=== PATIENT | female | born 1975 | race Caucasian/White ===

== ENCOUNTER → 2018-09-23 | Outpatient (CLI) | payer BC ==
--- NOTE | 2018-09-23 16:25 | Diagnostic Imaging Report ---
INDICATION: Pelvic pain. FINDINGS: Uterus measures 10 x 6.2 x 5.4 cm. There are two heterogeneous solid masses within the myometrium, largest measuring 4.5 cm to the right of midline. Endometrial stripe measures 9 mm and appears uniform. The right ovary measures 2.8 x 2 x 1.5 cm. The left ovary measures 3.6 x 1.8 x 1.4 cm. There is a hyperechoic area within the left ovary, which is well circumscribed measuring 1.5 cm in diameter. There is normal blood flow to both ovaries. IMPRESSION: 1. Myometrial masses likely representing uterine fibroids, largest measuring 4.5 cm. 2. A well-circumscribed hyperechoic mass in the left ovary measuring 1.5 cm. This could represent hemorrhagic cyst. Would recommend followup for stability. Dictated by: Dictated on workstation # [id number]
--- NOTE | 2018-09-23 16:28 | Diagnostic Imaging Report ---
CLINICAL INDICATION: Patient with thyromegaly. COMPARISONS: None. FINDINGS: THYROID NODULES: There is a small cystic nodule with eccentric small hyperechoic area located in the mid right thyroid gland region which measures 7 mm x 8 mm x 4 mm. There is a solid and cystic nodule involving the mid to inferior portion of the left thyroid gland which measures 8 mm x 5 mm x 8 mm. THYROID GLAND: Besides the thyroid nodules, the thyroid gland is heterogeneous with other small hypoechoic areas seen bilaterally which are all subcentimeter. There is no significant abnormal central Doppler flow. The right lobe measures 4.3 cm x 2.0 cm x 2.1 cm and the left lobe measures 4.2 cm x 1.4 cm x 2.3 cm in their three dimensions. ISTHMUS: The isthmus is unremarkable and measures 4 mm in thickness. IMPRESSION: 1: There are benign appearing right and left subcentimeter thyroid gland nodules, as described above. 2: There is nonspecific heterogeneity of the bilateral thyroid gland lobes with multiple small hypoechoic areas seen bilaterally. These may represent small nodules as well. Dictated by: Dictated on workstation # [id number]
--- NOTE | 2018-09-23 16:52 | Diagnostic Imaging Report ---
INDICATION: Routine screening. COMPARISON: Comparison is made with prior mammogram from 09/04/2017 and 07/25/2016. TECHNIQUE: 2D and 3D bilateral screening mammography was performed with computer-aided detection (CAD) system. FINDINGS: Scattered fibroglandular densities are identified bilaterally. The parenchymal pattern is stable. No mass or malignant appearing microcalcifications are seen. The axillae are unremarkable. IMPRESSION: No mammographic features suspicious for malignancy are identified. ACR BI-RADS Category 1: Negative. Result letter will be mailed to the patient. Note: At least 10% of breast cancer is not imaged by mammography. Dictated by: Dictated on workstation # [id number]
== END ==
LOC: RAD 14:27
PROVIDERS: ATTEND Nurse Practitioner Family
DX: Z12.31 Encounter for screening mammogram for malignant neoplasm of breast (principal); N83.8 Other noninflammatory disorders of ovary, fallopian tube and broad ligament; N85.8 Other specified noninflammatory disorders of uterus; E04.2 Nontoxic multinodular goiter
CPT/HCPCS: 76536; 76830; 76856; 77067

== ENCOUNTER → 2020-08-28 | Outpatient (CLI) | payer BC ==
--- NOTE | 2020-08-28 18:00 | Diagnostic Imaging Report ---
INDICATION: Routine screening. COMPARISON is made with prior mammogram of 09/23/2018. 2-D and 3-D bilateral screening mammography was performed with CAD. Both breasts are heterogeneously dense, limiting the sensitivity of mammography. Intraparenchymal lymph node upper outer right breast appears stable. Clustered microcalcifications in the upper-outer right breast appear stable. No new mass or malignant appearing microcalcifications are detected. Axillae are unremarkable. IMPRESSION: BI-RADS Category 2. No mammographic features suspicious for malignancy are identified. Dictated by: Dictated on workstation # [id number]
== END ==
LOC: RAD 14:52
PROVIDERS: ATTEND Obstetrics & Gynecology
DX: Z12.31 Encounter for screening mammogram for malignant neoplasm of breast (principal)
CPT/HCPCS: 77063; 77067

== ENCOUNTER → 2021-08-29 | Outpatient (CLI) | payer BC, OTHER ==
--- NOTE | 2021-08-29 22:16 | Diagnostic Imaging Report ---
INDICATION: Routine screening. COMPARISON: Prior mammograms from 08/28/2020 and 09/23/2018. EXAMINATION: 2D and 3D bilateral screening mammography was performed with CAD. The current study was also evaluated with a Computer Aided Detection (CAD) system. FINDINGS: Both breasts are heterogeneously dense, limiting the sensitivity of mammography. Calcifications in the outer right breast appear stable. No mass or malignant-appearing microcalcifications are seen. Axillae are unremarkable. IMPRESSION: No mammographic features suspicious for malignancy are identified. ACR BI-RADS Category 2: Benign findings. Result letter will be mailed to the patient. Note: At least 10% of breast cancer is not imaged by mammography. Dictated by: Dictated on workstation # [id number]
== END ==
LOC: RAD 11:24
PROVIDERS: ATTEND Obstetrics & Gynecology
DX: Z12.31 Encounter for screening mammogram for malignant neoplasm of breast (principal)
CPT/HCPCS: 77063; 77067

== ENCOUNTER 2022-05-29 05:39 | Outpatient (CLI) | payer OTHER ==
[~2022-05-29] VITALS: Ht 162.6 cm; Wt 89.5 kg
--- NOTE | 2022-06-04 16:20 | Progress Note-Pre Operative ---
Pre-Operative Progress Note H&P Reviewed The H&P was reviewed, patient examined and no changes noted. Date Seen by Provider: Jun 05, 2022 Date H&P Reviewed: Jun 05, 2022 Pre-Operative Diagnosis: CPP / endometriosis STAR CAN MD Jun 04, 2022 16:20
--- NOTE | 2022-06-04 16:21 | Progress Note-Post Operative ---
Post-Operative Progess Note Surgeon (s)/Semiconductor Manufacturing Technician (s) Surgeon STAR CAN MD Pre-Operative Diagnosis CPP / endometriosis Post-Operative Diagnosis sme Procedure & Operative Findings Date of Procedure 06/04/22 Procedure Performed/Findings TLH with BSO Anesthesia Type general Specimens/Packing Specimens Removed Uterus tubes and ovaries STAR CAN MD Jun 04, 2022 16:21
== END 2022-06-02 13:15 | disposition home or self-care (01) ==
LOC: PREOP 05:39
PROVIDERS: ATTEND Obstetrics & Gynecology
DX: Z01.818 Encounter for other preprocedural examination (principal)

== ENCOUNTER 2022-06-05 11:34 | Day surgery (SDC) | payer OTHER ==
[2022-06-05] VITALS (9 sets, daily range): BP systolic 131–157; BP diastolic 71–99
[~2022-06-05] VITALS: Ht 162.6 cm; Wt 89.5 kg
[2022-06-05] MEDS ORDERED: LACTATED RINGERS 1,000 ML IV PRN (11:45)
[2022-06-05] MEDS ORDERED: KETOROLAC 30 MG/ML VIAL IVP SCH (11:45)
[2022-06-05] MEDS ORDERED: oxyCODONE/APAP 5/325MG (PERCOCET 5) TABLET PO PRN (11:45)
[2022-06-05] MEDS ORDERED: fentaNYL INJ 100 MCG/2 ML AMP IVP PRN (11:45)
[2022-06-05] MEDS ORDERED: ONDANSETRON 4 MG/2 ML (SDV) Z0FRAN IVP PRN ×3 (11:45→16:15)
[2022-06-05] MEDS ORDERED: ceFAZolin INJECTION 1,000 MG VIAL IV ONE (12:00)
[2022-06-05] MEDS ORDERED: ceFAZolin INJECTION 1,000 MG ONE (12:07)
[2022-06-05 12:09] LABS: BASOPHILS # (AUTO) 0.1 10^3/uL (0.0-0.1); BASOPHILS % (AUTO) 1 % (0-10); EOSINOPHILS # (AUTO) 0.1 10^3/uL (0.0-0.3); EOSINOPHILS % (AUTO) 1 % (0-10); HEMATOCRIT 42 % (35-52); HEMOGLOBIN 13.6 g/dL (11.5-16.0); LYMPHOCYTES # (AUTO) 1.7 10^3/uL (1.0-4.0); LYMPHOCYTES % (AUTO) 23 % (12-44); MEAN CORPUSCULAR HEMOGLOBIN 30 pg (25-34); MEAN CORPUSCULAR HGB CONC 32 g/dL (32-36); MEAN CORPUSCULAR VOLUME 94 fL (80-99); MEAN PLATELET VOLUME 10.1 fL (9.0-12.2); MONOCYTES # (AUTO) 0.4 10^3/uL (0.0-1.0); MONOCYTES % (AUTO) 6 % (0-12); NEUTROPHILS # (AUTO) 5.4 10^3/uL (1.8-7.8); NEUTROPHILS % (AUTO) 70 % (42-75); PLATELET COUNT 257 10^3/uL (130-400); WHITE BLOOD COUNT 7.8 10^3/uL (4.3-11.0)
[2022-06-05] MEDS ORDERED: LIDOCAINE/EPI 2% 1:100,00 (XYLOCAINE) 20 ML VIAL ONE (12:10)
[2022-06-05] MEDS ORDERED: ROCURONIUM 50 MG/5 ML (ZEMURON) VIAL IV ONE (12:20)
[2022-06-05] MEDS ORDERED: KETOROLAC 30 MG/ML VIAL ONE (12:20)
[2022-06-05] MEDS ORDERED: ONDANSETRON 4 MG/2 ML (SDV) Z0FRAN ONE (12:20)
[2022-06-05] MEDS ORDERED: MIDAZOLAM 2 MG/2 ML (VERSED) VIAL ONE (12:20)
[2022-06-05] MEDS ORDERED: LIDOCAINE PF 2% 5 ML (XYLOCAINE) VIAL ONE (12:20)
[2022-06-05] MEDS ORDERED: fentaNYL INJ 100 MCG/2 ML AMP ONE ×2 (12:20→17:47)
[2022-06-05] MEDS ORDERED: proPOfol 200 MG/20 ML (DIPRIVAN) VIAL IV ONE (12:20)
[2022-06-05] MEDS ORDERED: ESTROGENS CONJ INJECTION 25 MG in WATER (STERILE) FOR INJECTION 5 ML IV ONE (13:30)
--- NOTE | 2022-06-05 13:30 | Discharge Inst-Surgical ---
Discharge Inst-Surgical Depart Medication/Instructions New, Converted or Re-Newed RX: Transmitted to Pharmacy Consults/Follow Up Patient Instructions: as Directed Orders & Referrals Follow Up Appt: Return to clinic on Thursday, June 09, 2022 for staple removal Call to make follow up appt. for patient in 4 weeks. Activity: Rest for 24 hours, than as tolerated. Wound Care: May remove Band-Aid tomorrow. Replace as desired. Keep incisions clean and dry. Wash daily with soap and water. Prescriptions for Percocet Motrin Colace and estradiol have been sent to patient's pharmacy from my office Diet: As tolerated-Clear Liquids only if nauseated. Tomorrow, may shower or tub bathe as desired. No driving for 24 hours, no alcoholic beverages for 24 hours, and nothing per vagina (no tampons, douching, or intercourse) for 8 weeks. Patient to return to the clinic as soon as possible for: Temperature greater than 101F, Severe Pain, Foul discharge from incision or vagina, Excessive Bleeding (more than a period). Activity Activity as Tolerated: No Diet Discharge Diet: No Restrictions STAR CAN MD Jun 05, 2022 13:30
[2022-06-05] MEDS ORDERED: HYDROmorphone 2 MG/ML VIAL (DILAUDID) ONE ×2 (15:11→16:49)
[2022-06-05] MEDS ORDERED: INDIGO CARMINE 8 MG/ML 5 ML AMP ONE (15:38)
[2022-06-05] MEDS ORDERED: SUGAMMADEX 500 MG/5 ML VIAL (BRIDION) IV ONE (15:42)
[2022-06-05] MEDS ORDERED: SEVOFLURANE (ULTANE) 15 ML INHAL SOLN ONE (15:48)
[2022-06-05] MEDS ORDERED: HYDROmorphone 2 MG/ML VIAL (DILAUDID) IV ONE (16:15)
[2022-06-05] MEDS ORDERED: PROMETHAZINE INJ 25 MG/ML (PHENERGAN) AMP ONE (18:27)
[2022-06-05] MEDS ORDERED: PROMETHAZINE INJ 25 MG/ML (PHENERGAN) AMP IM ONE (18:30)
[2022-06-05] MEDS ORDERED: MEPERIDINE (DEMEROL) INJ 50 MG/ML IM PRN (18:30)
[2022-06-05] MEDS: D5 LR IV SOLUTION 1,000 ML IV SCH (19:51)
[2022-06-05] MEDS: KETOROLAC 30 MG/ML VIAL IVP SCH (21:42)
[2022-06-05] MEDS: DOCUSATE SODIUM 100 MG (COLACE) CAP PO SCH (21:42)
[2022-06-06 00:42] VITALS: BP 123/73
[2022-06-06] MEDS: KETOROLAC 30 MG/ML VIAL IVP SCH (03:32)
[2022-06-06] MEDS: D5 LR IV SOLUTION 1,000 ML IV SCH (03:34)
[2022-06-06 03:43] VITALS: BP 140/73
--- NOTE | 2022-06-06 04:25 | OPERATIVE REPORT ---
DATE OF SERVICE: 06/05/2022 PREOPERATIVE DIAGNOSES: Menorrhagia, uterine fibroids, chronic pelvic pain and endometriosis. POSTOPERATIVE DIAGNOSES: Menorrhagia, uterine fibroids, chronic pelvic pain and endometriosis with multiple fibroids. OPERATIVE PROCEDURE: Total laparoscopic hysterectomy with adhesiolysis and with bilateral salpingo-oophorectomy. OPERATIVE DESCRIPTION: With the patient in the supine position under satisfactory general anesthesia, she was repositioned in dorsal lithotomy position in the [facility] and prepped and draped in the usual fashion for abdominal and vaginal surgery using the da Anthony assisted equipment. A weighted speculum placed in posterior fornix of vagina, cervix exposed and grasped anteriorly with single tooth tenaculum. The uterus was sounded to 12 cm with uterine sound. The cervix was then serially dilated with Quan dilators to accommodate a Dell II manipulator, which was placed using a 6 mm x 8 cm uterine probe and a 30 mm colpotomy ring. Sutures of #1 Vicryl were placed at 3 and 9 o'clock position of the cervix to affix the uterus to the manipulator. The patient was brought into low dorsal lithotomy position after placing a Grace catheter in the urinary bladder removing the tenaculum and speculum. A 12 mm incision was made 10 cm superior to the umbilicus. Veress needle was placed through that incision into the abdominal cavity. Correct placement was just confirmed with a water drop test. The abdomen was insufflated with 2.4 liters of carbon dioxide. Veress needle was removed and a 12 mm Optiview laparoscopic port was placed. The abdominal wall was transilluminated and ports of 8 mm were placed through incisions of those sizes 8 cm lateral to the umbilicus and about 2 cm superior to the umbilicus. There were some adhesions of the omentum fairly extensive in the right anterior lateral abdominal wall. The lateral port was placed lateral to that. The supraumbilical port was placed medial. The patient was placed in Trendelenburg and now allowing the bowel to spill up out of the pelvis. The da Anthony column was advanced on the patient and docked. Operative instruments were placed in right and left lateral ports and I retired to the da Anthony console. At the console using the vessel sealer in the left lateral port, the adhesions of the omentum to the anterior abdominal wall were carefully and relatively meticulously taken down to free that tissue to allow full access and visualization of the pelvis and to avoid obstruction of the right lateral port. With those adhesions freed, the vessel sealer was placed in the right lateral port and a bipolar fenestrated grasper was placed in the left. The pelvis was examined. The uterus was fairly massive, had multiple, multiple, multiple fibroids, both intramural and subserosal. Presumably that will be submucosal, but I could not tell that. Both ovaries were fairly normal in appearance as were the fallopian tubes. There was a lot of distortion to the ovaries and fallopian tubes as they appeared somewhat atretic as well. The laparoscope was rotated. The appendix was identified. It was a normal vermiform appendix. There were some adhesions of the cecum to the terminus of the pericolic gutter, but those were not obstructing view or access to the pelvis. There were adhesions of the sigmoid colon to the left pelvic brim into the terminus of the left pericolic gutter. These were taken free sharply, bluntly and with electrocautery to allow full access to the left IP ligament. Both ureters could be seen to peristalse although the left ureter was very difficult to identify. It was well out of the operative field. Attention was brought back to the right tube and ovary, which were grasped and elevated. The IP ligament was clamped, cauterized and divided with the vessel sealer. The dissection was continued stepwise across the mesovarium to the round ligament, across the round ligament, across the broad ligament and down onto the cardinal ligament. Same procedure was performed on the left, allowing for eventual removal of both tubes and ovaries with the uterus. A fourth port of 5 mm were placed in the right upper quadrant to allow for additional manipulation of the uterus for exposure and dissection. The uterus was so large and lobular it was difficult to manipulate with just the uterine manipulator with a Cadiere grasper through the right upper quadrant port. The uterus could be positioned to the desired location and the Cadiere could hold it in place. Attention was now turned to the anterior lower uterine segment. Peritoneum was divided with monopolar dane. The bladder was carefully dissected down off the lower uterine segment and then colpotomy incision was started at 12 o'clock position onto the colpotomy ring and that incision was continued circumferentially until the entire colpotomy ring was exposed. Again, multiple repositions of the uterus were required because of the large bulky lobular nature of it, but eventually the colpotomy ring was fully exposed. This allowed for extraction of the uterus. In order to extract the uterus, I scrubbed back in and assumed care from below. The uterus was brought down into the pelvis as much as it was possible. The [place] retractor was placed anteriorly. A long billed weighted speculum was placed posteriorly. The uterus was grasped and held in place with three single tooth tenaculum. The DELL manipulator was removed. The uterus was removed by essentially beginning the coring process dissecting the uterus anteriorly allowing it to eventually collapse on itself and be extracted down into the vagina. Eventually the entire uterus was removed, all in 1 piece although it had been dissected extensively to allow it to fit through the vagina. The uterus was sent to pathology for permanent section with the tubes and ovaries still attached. I resumed care at the da Anthony console now and examined the vaginal cuff, which was oozing a bit, but was satisfactory for closure using a single suture of V-Loc barbed suture. The vaginal cuff was closed starting at the right angle and continued about two-thirds way across and second suture was then used to finish the closure across the vaginal cuff, taking care to ensure inclusion of the uterine vessel pedicles bilaterally. The last couple of stitches were used to bring the bladder peritoneum back down over the vaginal cuff itself. The right ureter could be easily seen and identified peristalsing. The left ureter was difficult to see; however, appeared to be out of the way, but decision was made to go ahead with cystoscopy to ensure the integrity of the ureters. The patient was given an amp of indigo carmine and 20 mg of Lasix while the laparoscopic portion of the procedure was completed. With hemostasis assured, the pelvis was evacuated of blood and clot. The operative instruments were removed as were the ports. The abdomen was evacuated of insufflating gas in the process of removing the ports. The skin incisions were stapled after closing the fascia at the supraumbilical incision with a [id number] suture of 2-0 Vicryl. Speculum was replaced in the vagina. The vaginal cuff was hemostatic, but there were some small lacerations of the hymenal ring that required suture for hemostasis. The cystoscopy was then performed using LR as a distending medium. Both ureters were easily identified and were freely effluxing blue urine at this point. With the integrity of the ureters confirmed, hemostasis complete, sponge and needle counts correct and blood loss around 100 mL, the procedure was terminated. Sponge and needle counts were correct. Blood loss was around 100 mL. The patient was uneventfully awakened from her general anesthesia and transferred to the recovery room in stable condition. Job ID: [id number] DocumentID: [id number] Dictated Date: 06/05/2022 18:05:04 Kiss Mixer Date: 06/06/2022 04:24:08 Dictated By: STAR CAN MD
[2022-06-06] MEDS ORDERED: SIMETHICONE 80 MG (MYLICON) CHEW PO ONE (06:45)
--- NOTE | 2022-06-06 07:17 | Progress Note ---
Standard Progress Note Progress Notes/Assess & Plan Date Seen by a Provider: Jun 06, 2022 Time Seen by a Provider: 07:16 Progress/Assessment & Plan This patient is without complaint. She is ambulating, tolerating oral. Intake well, has good pain control. She has not voided yet her Grace catheter was just removed. Vital Signs Date Time Temp Pulse Resp B/P (MAP) Pulse Ox O2 Delivery O2 Flow Rate FiO2 06/06/22 03:43 36.8 78 16 140/73 (95) 97 Room Air 06/06/22 00:42 36.4 95 16 123/73 (90) 95 Room Air 06/05/22 21:45 36.4 96 16 137/77 (97) 95 Room Air 06/05/22 17:27 36.3 90 16 141/71 (94) 96 Room Air 06/05/22 17:05 Room Air 06/05/22 17:00 36.3 14 131/99 (110) 98 Room Air 06/05/22 16:50 OxyMask 3.00 06/05/22 16:50 12 157/78 (104) 100 OxyMask 3.00 06/05/22 16:40 14 155/89 (111) 100 OxyMask 3.00 06/05/22 16:35 OxyMask 3.00 06/05/22 16:30 16 147/93 (111) 100 OxyMask 8 06/05/22 16:20 20 154/89 (110) 100 OxyMask 8 06/05/22 16:20 OxyMask 8 06/05/22 16:10 14 148/84 (105) 100 OxyMask 8 06/05/22 16:05 37.6 12 139/94 (109) 98 OxyMask 8 06/05/22 16:05 OxyMask 8 I & O 06/06/22 07:00 Intake Total 2405 ml Output Total 1625 ml Balance 780 ml Vital signs are stable. Patient is afebrile. The abdomen is benign. The surgical incisions are clean and dry Extremities show no clubbing or cyanosis. There is no Homans' sign. Pelvic exam is deferred Assessment and plan Postoperative day #1 doing well. Plan is for routine convalescent care with discharge home Final Diagnosis Total laparoscopic hysterectomy with bilateral salpingo-oophorectomy STAR CAN MD Jun 06, 2022 07:17
--- NOTE | 2022-06-06 08:45 | Anesthesia-General Post-Op ---
General Patient Condition Mental Status/LOC: Same as Preop Cardiovascular: Satisfactory Nausea/Vomiting: Absent Respiratory: Satisfactory Pain: Controlled Complications: Absent Post Op Complications Complications None Follow Up Care/Instructions Patient Instructions None needed. Anesthesia/Patient Condition Patient Condition Patient is doing well, no complaints, stable vital signs, no apparent adverse anesthesia problems. No complications reported per nursing. LOIDA IQBAL CRNA Jun 06, 2022 08:45
[2022-06-06 08:56] VITALS: BP 114/73
[2022-06-06] MEDS: DOCUSATE SODIUM 100 MG (COLACE) CAP PO SCH (08:57)
[2022-06-06] MEDS ORDERED: DOCUSATE SODIUM 100 MG (COLACE) CAP PO SCH (09:00)
[2022-06-06] MEDS ORDERED: IBUPROFEN 800 MG (MOTRIN) TAB PO SCH ×2 (09:00→15:00)
[2022-06-06 11:45] VITALS: BP 114/73
== END 2022-06-06 11:45 | disposition home or self-care (01) ==
LOC: SDC 11:34 → WS 17:17 → SDC 06-06 11:45
PROVIDERS: ATTEND Obstetrics & Gynecology
DX: D25.1 Intramural leiomyoma of uterus (principal); D25.0 Submucous leiomyoma of uterus; D25.2 Subserosal leiomyoma of uterus; N83.12 Corpus luteum cyst of left ovary; N83.8 Other noninflammatory disorders of ovary, fallopian tube and broad ligament; E66.9 Obesity, unspecified; Z68.33 Body mass index [BMI] 33.0-33.9, adult
CPT/HCPCS: 36415; 84703; 85025; 87081

== ENCOUNTER → 2023-06-02 | Outpatient (CLI) | payer OTHER ==
--- NOTE | 2023-06-02 14:24 | Diagnostic Imaging Report ---
INDICATION: Routine screening. COMPARISON: 08/29/2021 and 08/28/2020. TECHNIQUE: 2D and 3D bilateral screening mammography was performed with CAD. FINDINGS: Both breasts are heterogeneously dense, limiting the sensitivity of mammography. A density in the retroareolar portion of the right breast on the CC view appears to be more prominent than on prior exams. Additional views are recommended. No definite correlate on the MLO view is identified. Calcifications in both breasts appear to be fairly stable. The axillae are unremarkable. IMPRESSION: Right breast density. Additional views are recommended for further evaluation. ACR BI-RADS Category 0: Incomplete. (Needs additional imaging evaluation). Result letter will be mailed to the patient. Note: At least 10% of breast cancer is not imaged by mammography. Dictated by: Dictated on workstation # [id number]
== END ==
LOC: RAD 13:00
PROVIDERS: ATTEND Obstetrics & Gynecology
DX: Z12.31 Encounter for screening mammogram for malignant neoplasm of breast (principal)
CPT/HCPCS: 77063; 77067

== ENCOUNTER → 2023-06-11 | Outpatient (CLI) | payer OTHER ==
--- NOTE | 2023-06-11 13:09 | Diagnostic Imaging Report ---
INDICATION: Recent screening view showed single view asymmetry anterior depth right breast seen only in the CC orientation. She returns for diagnostic views on the right. TECHNIQUE: Unilateral right digital 2-D and 3-D diagnostic mammography with CAD performed. FINDINGS: Density 3. Prior retroareolar asymmetry shows resolution and dispersal with spot compression in the MLO and CC orientation. A 90 degree mediolateral view was performed, also normal. CC views, rolled laterally and medially are normal. No mass, architectural distortion, spiculated lesion or findings of malignancy. Assuming the absence of adverse change, this patient can be returned to routine bilateral screening next due in one year's time. IMPRESSION: Negative unilateral right diagnostic views, return to screening. BI-RADS Category 1 ACR BI-RADS Category 1: Negative. Result letter will be mailed to the patient. Note: At least 10% of breast cancer is not imaged by mammography. Dictated by: Dictated on workstation # [id number]
== END ==
LOC: RAD 12:43
PROVIDERS: ATTEND Obstetrics & Gynecology
DX: R92.8 Other abnormal and inconclusive findings on diagnostic imaging of breast (principal)
CPT/HCPCS: 77065; G0279